=== PATIENT | female | born 1955 | race Caucasian/White ===

== ENCOUNTER → 2018-05-31 | Outpatient (CLI) | payer OTHER | LOC: M.RAD 10:00 | DX: R92.2 Inconclusive mammogram (principal) ==

== ENCOUNTER → 2018-11-04 | Outpatient (CLI) | payer OTHER ==
[2018-11-04 12:25] LABS: CREATININE 1.2 mg/dL (0.6-1.3)
== END ==
LOC: M.CT 10-22 11:00 → M.LAB 12:00 → M.CT 13:00
PROVIDERS: Internal Medicine Endocrinology, Diabetes & Metabolism
DX: C73 Malignant neoplasm of thyroid gland (principal); R59.9 Enlarged lymph nodes, unspecified; E03.8 Other specified hypothyroidism

== ENCOUNTER 2018-11-22 20:50 | Emergency (ER) | payer OTHER ==
[~2018-11-22] VITALS: Ht 152.4 cm; Wt 54.0 kg
[2018-11-22 20:58] VITALS: BP 145/66
[2018-11-22] MEDS ORDERED: MECLIZINE HCL25 M1 PO (21:03)
[2018-11-22] MEDS ORDERED: TRAMADOL 50 MG50 MG PO (21:04)
[2018-11-22] MEDS ORDERED: TERAZOSIN HCL5 MG PO (21:05)
[2018-11-22] MEDS ORDERED: OFLOXACIN5 M1 RT. EAR (21:44)
== END 2018-11-22 21:54 | disposition home or self-care (01) ==
LOC: M.ERS 20:50
DX: S01.311A Laceration without foreign body of right ear, initial encounter (principal); H81.09 Meniere's disease, unspecified ear; Z85.850 Personal history of malignant neoplasm of thyroid; Z88.0 Allergy status to penicillin; Z88.1 Allergy status to other antibiotic agents; Z88.2 Allergy status to sulfonamides; X58.XXXA Exposure to other specified factors, initial encounter; Y93.89 Activity, other specified; Y92.89 Other specified places as the place of occurrence of the external cause; Y99.8 Other external cause status

== ENCOUNTER → 2020-02-16 | Outpatient (CLI) | payer OTHER ==
[~2020-02-16] MED LIST: MECLIZINE HCL25 M1 PO; OFLOXACIN5 M1 RT. EAR; TERAZOSIN HCL5 MG PO; TRAMADOL 50 MG50 MG PO
== END ==
LOC: M.RAD 13:17
PROVIDERS: ATTEND Family Medicine
DX: Z12.31 Encounter for screening mammogram for malignant neoplasm of breast (principal); Z13.820 Encounter for screening for osteoporosis; M81.0 Age-related osteoporosis without current pathological fracture